=== PATIENT | male | born 1975 | race Caucasian/White ===

== ENCOUNTER 2019-03-20 07:07 | Emergency (ER) | payer BC, OTHER ==
[2019-03-20 08:24] LABS: Urine Blood NEGATIVE (NEG); Urine Glucose NEGATIVE (NEG); Urine Protein NEGATIVE (NEG); Urine Specific Gravity >1.030 (1.005-1.030); Urine pH 5.5 (5.0-7.0)
--- NOTE | 2019-03-20 08:43 | ER ---
Nurse's Notes [facility] Name: Fan Terry Age: 43 yrs Sex: Male : 1975 Arrival Date: 03/20/2019 Time: 07:10 Bed 15 Private MD: Chano Garcia E Diagnosis: Epididymitis Presentation: 03/20 07:16 Presenting complaint: Patient states: R sided testicular pain x 2 days, redness and ss swelling that began yesterday. Transition of care: patient was not received from another setting of care. Onset of symptoms was February 16, 2019. Risk Assessment: Do you want to hurt yourself or someone else? Patient reports no desire to harm self or others. Initial Sepsis Screen: Does the patient meet any 2 criteria? No. Patient's initial sepsis screen is negative. Does the patient have a suspected source of infection? No. Patient's initial sepsis screen is negative. Care prior to arrival: None. 07:16 Method Of Arrival: Ambulatory ss 07:16 Acuity: ALONSO 3 ss Historical: - Allergies: 07:17 No Known Allergies; ss - Home Meds: 07:17 testosterone [Active]; ss - PMHx: 07:17 None; ss - PSHx: 07:17 Vasectomy; ss - Immunization history:: Adult Immunizations up to date. - Social history:: Smoking status: Patient/guardian denies using tobacco. - Ebola Screening: : Patient denies exposure to infectious person Patient denies travel to an Ebola-affected area in the 21 days before illness onset. Screenin:20 Abuse screen: Denies threats or abuse. Denies injuries from another. Nutritional sg screening: No deficits noted. Tuberculosis screening: No symptoms or risk factors identified. Never had TB. Fall Risk None identified. Assessment: 07:20 General: Appears in no apparent distress. well groomed, well developed, well nourished, sg Behavior is calm, cooperative, appropriate for age. Pain: Complains of pain in right testicle Quality of pain is described as aching, tender. Neuro: Level of Consciousness is awake, alert, obeys commands, Oriented to person, place, time, situation, Speech is normal, Facial symmetry appears normal. Cardiovascular: Capillary refill is brisk fingers toes Patient's skin is warm and dry. Chest pain is denied. Respiratory: Airway is patent Respiratory effort is even, unlabored, Respiratory pattern is regular, symmetrical. GI: Abdomen is flat, non-distended, Reports normal bowel habits, tolerance of fluids, tolerance of food. : Genitalia appear normal Last void was March 20, 2019. Reports pain in right testicle. EENT: No signs and/or symptoms were reported regarding the EENT system. Derm: Skin is pink, warm \T\ dry. Musculoskeletal: Circulation, motion, and sensation intact. Range of motion: intact in all extremities. Vital Signs: 07:17 BP 144 / 97; Pulse 75; Resp 16; Pulse Ox 99% on R/A; Weight 90.72 kg; Height 5 ft. 7 ss in. (170.18 cm); Pain 3/10; 07:20 Temp 98.4(O); em1 08:35 BP 122 / 92; Pulse 73; Resp 16; Pulse Ox 99% on R/A; Pain 3/10; em1 07:17 Body Mass Index 31.32 (90.72 kg, 170.18 cm) ED Course: 07:10 Patient arrived in ED. rg4 07:10 Chano Garcia MD is Private Physician. rg4 07:13 Erika Bermudez FNP-C is [facility]. kb 07:13 Parish Weston MD is Attending Physician. kb 07:14 Ranulfo Rosario MD is Attending Physician. kb 07:16 Triage completed. ss 07:16 Eloy Richter, RN is Primary Nurse. sg 07:17 Arm band placed on right wrist. ss 07:20 Urine collected: clean catch specimen. sg 07:59 Ultrasound completed. Patient tolerated well. aa4 07:59 US Scrotum Testicles In Process Unspecified. EDMS Administered Medications: 08:50 Drug: Rocephin (cefTRIAXone) 250 mg Route: IM; Site: left vastus lateralis; sg 08:50 Drug: Doxycycline 100 mg Route: PO; sg Outcome: 08:42 Discharge ordered by . kb 09:04 Patient left the ED. sg Signatures: Dispatcher [employer] EDMS Erika Bermudez FNP-C FNP-Eloy Bui RN RN Cynthia Frost aa4 Shahram Ma em1 Angela Juarez RN RN Yazmin Gerber rg4
--- NOTE | 2019-03-20 08:43 | EDPHYS ---
Physician Documentation [facility] Name: Fan Terry Age: 43 yrs Sex: Male : 1975 Arrival Date: 03/20/2019 Time: 07:10 Bed 15 Private MD: Chano Garcia E ED Physician Ranulfo Rosario HPI: 03/20 07:25 This 43 yrs old Male presents to ER via Ambulatory with complaints of kb Testicular Pain, Testicular Swelling. 07:25 The patient presents with scrotal pain, of both sides. Onset: The symptoms/episode kb began/occurred 2 day(s) ago. Modifying factors: The symptoms are alleviated by nothing, the symptoms are aggravated by pressure. Associated signs and symptoms: The patient has no apparent associated signs or symptoms. Severity of symptoms: At their worst the symptoms were moderate, in the emergency department the symptoms are unchanged. The patient has not experienced similar symptoms in the past. The patient has not recently seen a physician. Pt reports right testicular swelling, redness and pain that started 2 days ago. Denies any other symptoms.. Historical: - Allergies: 07:17 No Known Allergies; ss - Home Meds: 07:17 testosterone [Active]; ss - PMHx: 07:17 None; ss - PSHx: 07:17 Vasectomy; ss - Immunization history:: Adult Immunizations up to date. - Social history:: Smoking status: Patient/guardian denies using tobacco. - Ebola Screening: : Patient denies exposure to infectious person Patient denies travel to an Ebola-affected area in the 21 days before illness onset. ROS: 07:24 Constitutional: Negative for fever, chills, and weight loss, Cardiovascular: Negative kb for chest pain, palpitations, and edema, Respiratory: Negative for shortness of breath, cough, wheezing, and pleuritic chest pain, Abdomen/GI: Negative for abdominal pain, nausea, vomiting, diarrhea, and constipation, Back: Negative for injury and pain, MS/Extremity: Negative for injury and deformity, Skin: Negative for injury, rash, and discoloration, Neuro: Negative for headache, weakness, numbness, tingling, and seizure. 07:24 : Positive for testicular pain of the right testicle. Exam: 07:24 Constitutional: This is a well developed, well nourished patient who is awake, alert, kb and in no acute distress. Head/Face: Normocephalic, atraumatic. Neck: Trachea midline, no thyromegaly or masses palpated, and no cervical lymphadenopathy. Supple, full range of motion without nuchal rigidity, or vertebral point tenderness. No Meningismus. Chest/axilla: Normal chest wall appearance and motion. Nontender with no deformity. No lesions are appreciated. Cardiovascular: Regular rate and rhythm with a normal S1 and S2. No gallops, murmurs, or rubs. Normal PMI, no JVD. No pulse deficits. Respiratory: Lungs have equal breath sounds bilaterally, clear to auscultation and percussion. No rales, rhonchi or wheezes noted. No increased work of breathing, no retractions or nasal flaring. Abdomen/GI: Soft, non-tender, with normal bowel sounds. No distension or tympany. No guarding or rebound. No evidence of tenderness throughout. Skin: Warm, dry with normal turgor. Normal color with no rashes, no lesions, and no evidence of cellulitis. MS/ Extremity: Pulses equal, no cyanosis. Neurovascular intact. Full, normal range of motion. Neuro: Awake and alert, GCS 15, oriented to person, place, time, and situation. Cranial nerves II-XII grossly intact. Motor strength 5/5 in all extremities. Sensory grossly intact. Cerebellar exam normal. Normal gait. 07:24 : Male external genitalia: tenderness, that is moderate, right testicle. Vital Signs: 07:17 BP 144 / 97; Pulse 75; Resp 16; Pulse Ox 99% on R/A; Weight 90.72 kg; Height 5 ft. 7 ss in. (170.18 cm); Pain 3/10; 07:20 Temp 98.4(O); em1 08:35 BP 122 / 92; Pulse 73; Resp 16; Pulse Ox 99% on R/A; Pain 3/10; em1 07:17 Body Mass Index 31.32 (90.72 kg, 170.18 cm) ss MDM: 07:13 Patient medically screened. kb 07:24 Data reviewed: vital signs, nurses notes. Data interpreted: Pulse oximetry: on room air kb is 99 %. Interpretation: normal. 07:26 ED course: +right testicular tenderness, no redness or swelling appreciated. . kb 08:42 Counseling: I had a detailed discussion with the patient and/or guardian regarding: the kb historical points, exam findings, and any diagnostic results supporting the discharge/admit diagnosis, lab results, radiology results, the need for outpatient follow up, a family practitioner, to return to the emergency department if symptoms worsen or persist or if there are any questions or concerns that arise at home. 03/20 07:26 Order name: Urine Dipstick--Ancillary (enter results); Complete Time: 08:26 bd 03/20 07:16 Order name: US Scrotum Testicles kb 03/20 07:16 Order name: Urine Dipstick-Ancillary (obtain specimen); Complete Time: 07:30 kb Administered Medications: 08:50 Drug: Rocephin (cefTRIAXone) 250 mg Route: IM; Site: left vastus lateralis; sg 08:50 Drug: Doxycycline 100 mg Route: PO; sg Disposition: 03/21 07:13 Co-signature as Attending Physician, Ranulfo Rosario MD I agree with the assessment and kdr plan of care. Disposition: 03/20/19 08:42 Discharged to Home. Impression: Epididymitis. - Condition is Stable. - Discharge Instructions: Epididymitis. - Prescriptions for Doxycycline Hyclate 100 mg Oral Tablet - take 1 tablet by ORAL route every 12 hours; 20 tablet. - Medication Reconciliation Form, Thank You Letter, Antibiotic Education, Prescription Opioid Use, Work release form form. - Follow up: Emergency Department; When: As needed; Reason: Worsening of condition. Follow up: Private Physician; When: 2 - 3 days; Reason: Recheck today's complaints, Continuance of care, Re-evaluation by your physician. Signatures: Dispatcher [employer] Erika Meyer, LABOR RELATIONS ANALYST-C LABOR RELATIONS ANALYST-CkEloy Richardson RN RN sg Ranulfo Rosario MD MD [facility] Angela Juarez RN RN ss Corrections: (The following items were deleted from the chart) 03/20 09:04 08:42 03/20/2019 08:42 Discharged to Home. Impression: Epididymitis. Condition is sg Stable. Forms are Medication Reconciliation Form, Thank You Letter, Antibiotic Education, Prescription Opioid Use. Follow up: Emergency Department; When: As needed; Reason: Worsening of condition. Follow up: Private Physician; When: 2 - 3 days; Reason: Recheck today's complaints, Continuance of care, Re-evaluation by your physician. kb
[2019-03-20] MEDS ORDERED: LIDOCAINE 1% MPF 2 ML AMPULE ONE (08:47)
[2019-03-20] MEDS ORDERED: DOXYCYCLINE 100 MG CAP PO ONE (08:48)
[2019-03-20] MEDS ORDERED: CEFTRIAXONE 250 MG/VIAL ONE (08:48)
[2019-03-20 09:09] VITALS: O2SAT 99
[2019-03-20 09:10] VITALS: TEMP 98.4
[2019-03-20 09:11] VITALS: BP 122/92
--- NOTE | 2019-03-20 10:23 | RAD REPORT ---
EXAM DESCRIPTION: US - Scrotum Testicles - 03/20/2019 7:59 am CLINICAL HISTORY: Right-sided testicular pain and swelling Preliminary findings provided at the time of the study. COMPARISON: July 2012 FINDINGS: Right epididymis is increased slightly in size compared to the left and shows a slight inc rease in vascularity. Both testicles show homogeneous echogenicity with no focal mass lesions. Dopple r evaluation shows a symmetric blood flow pattern within each testicle. No hydrocele or extratesticul ar abnormality otherwise noted. IMPRESSION: Mild right-sided epididymitis.
== END 2019-03-20 09:04 | disposition home or self-care (01) ==
LOC: ER 07:07
DX: N45.1 Epididymitis (principal)
CPT/HCPCS: 81003; 76870; 96372; 99283; J2001; J0696

== ENCOUNTER 2024-09-28 18:50 | Emergency (ER) | payer BC ==
[2024-09-28] MEDS ORDERED: IBUPROFEN 400 MG TAB ONE (20:22)
[2024-09-28] MEDS ORDERED: HYDROCODONE/APAP 7.5/325 MG TAB ONE (20:22)
--- NOTE | 2024-09-28 20:29 | RAD REPORT ---
EXAMINATION: Foot Right 3 View VIEWS: As above CLINICAL INDICATION: Male, 49 years old. Pain;Deformity COMPARISON: No prior exam. IMPRESSION: Nondisplaced fracture at the base of the fifth metatarsal. Dorsal aspect calcaneal spur.
--- NOTE | 2024-09-28 21:44 | EDPHYS ---
Physician Documentation [facility] Name: Fan Terry Age: 49 yrs Sex: Male : 1975 Arrival Date: 09/28/2024 Time: 18:50 Bed 12 Private MD: ED Physician Jos Don HPI: 09/28 19:30 This 49 yrs old Male presents to ER via Ambulatory with complaints of Foot Injury - cp right. 19:30 The patient presents with an injury, pain, that is acute, swelling, tenderness. The cp complaints affect the right foot. Context: trip and fall while working in yard today. Modifying factors: the symptoms are aggravated by weight bearing. Associated signs and symptoms: The patient has no apparent associated signs or symptoms. Treatment prior to arrival includes: no previous treatment. 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 - Infectious Disease History:: Denies. - Social history:: Smoking status: Patient denies any tobacco usage or history of. ROS: 19:33 MS/extremity: Positive for pain, swelling, tenderness, of the right foot, cp 19:33 Neck: Negative for pain with movement, pain at rest, cp 19:33 Back: Negative for pain at rest, pain with movement, 19:33 All other systems are negative, Exam: 19:35 Constitutional: The patient appears in no acute distress, alert, awake, well developed, cp well nourished, uncomfortable, 19:35 Head/Face: Normocephalic, atraumatic. cp 19:35 Neck: ROM/movement: is normal, is supple, without pain, no range of motions limitations, 19:35 Back: pain, is absent, ROM is normal, 19:35 Musculoskeletal/extremity: Extremities: noted in the right foot: lateral side swelling and marked tenderness of proximal right fifth metatarsal, Perfusion: the extremity is normally perfused throughout, the right foot Sensation intact. 19:35 Skin: small abrasion noted lateral side of right foot. Vital Signs: 19:11 BP 131 / 90; Pulse 93; Resp 16; Temp 97.6; Pulse Ox 98% on R/A; Weight 90.72 kg; Height iw 5 ft. 7 in. ; Pain 5/10; 19:11 Body Mass Index 31.32 (90.72 kg, 170.18 cm) iw 19:11 Pain Scale: Adult iw Procedures: 22:00 Splinting: Splint applied to right foot using Orthoglass splint, short leg type. cp applied by nurse. Examined by me, post splint application: neurovascular intact, Patient tolerated well. MDM: 19:08 Medical Screening Exam initiated cp 21:43 Data reviewed: vital signs, nurses notes, radiologic studies, plain films, and as a cp result, I will discharge patient. 21:43 Differential diagnosis: dislocation, open fracture, closed fracture, contusion, sprain. cp I considered the following discharge prescriptions or medication management in the emergency department Medications were administered in the Emergency Department. See MAR. Counseling: I had a detailed discussion with the patient and/or guardian regarding the historical points, exam findings, and any diagnostic results supporting the discharge/admit diagnosis, radiology results, the need for outpatient follow up, for definitive care, a orthopedic surgeon, to return to the emergency department if symptoms worsen or persist or if there are any questions or concerns that arise at home. Response to treatment: the patient's symptoms have mildly improved after treatment, and as a result, I will discharge patient. 09/28 19:20 Order name: XRAY Foot RIGHT 3 View cp 09/28 20:42 Order name: Short Leg Splint; Complete Time: 22:06 cp 09/28 20:42 Order name: Crutches; Complete Time: 22:06 cp Administered Medications: 20:34 Drug: Hydrocodone-Acetaminophen PO (7.5 mg-325 mg) 1 tabs PO once; RASS on ADMIN: iw Combtv4, Very Agttd3, Agttd2, Rstlss1, AlertClm0, Drwsy-1, Lt Sdtn-2, Mod Sdtn-3, Dp Sdtn-4, UnArsble-5 Route: PO; 21:55 Follow up: Response: No adverse reaction; Pain is decreased cp4 20:34 Drug: Ibuprofen PO 800 mg PO once Route: PO; iw 21:55 Follow up: Response: No adverse reaction; Pain is decreased cp4 Disposition: 09/29 21:08 Chart complete. cp Disposition Summary: 05/16/25 21:43 Discharge Ordered Notes: Location: Home cp Problem: new cp Symptoms: have improved cp Condition: Stable cp Diagnosis - Nondisplaced fracture of fifth metatarsal bone, right foot cp Followup: cp - With: Steve Rich MD - When: 2 - 3 days - Reason: Recheck today's complaints Discharge Instructions: - Discharge Summary Sheet cp - Metatarsal Fracture cp Forms: - Medication Reconciliation Form cp - Antibiotic Education cp - Prescription Opioid Use cp - Patient Portal Instructions cp - Leadership Thank You Letter cp Prescriptions: - Ibuprofen 800 mg Oral Tablet - take 1 tablet ORAL route every 8 hours As needed take with food; 30 tablet; cp Refills: 0, Product Selection Permitted - Tylenol-Codeine #3 300mg-30mg Oral tablet - take 1 tablet ORAL route every 4 hours As needed; 16 tablet; Refills: 0, cp Product Selection Permitted Addendum: 10/01/2024 17:41 I was immediately available on-site in the Emergency Department for consultation in the m s3 care of the patient. Signatures: Dispatcher [employer] Pricilla Sotelo RN RN iw Page, Corey, PA PA Jos Baxter DO DO ms3 Elise Dueñas cp4
--- NOTE | 2024-09-28 21:44 | ER ---
Nurse's Notes [facility] Name: Fan Terry Age: 49 yrs Sex: Male : 1975 Arrival Date: 09/28/2024 Time: 18:50 Bed 12 Private MD: Diagnosis: Nondisplaced fracture of fifth metatarsal bone, right foot Presentation: 09/28 19:11 Chief complaint: Patient states: fell, rolled over garden hose. rolled his right foot. iw Coronavirus screen: At this time, the client does not indicate any symptoms associated with coronavirus-19. Ebola Screen: No symptoms or risks identified at this time. Initial Sepsis Screen: Does the patient meet any 2 criteria? No. Patient's initial sepsis screen is negative. Does the patient have a suspected source of infection? No. Patient's initial sepsis screen is negative. Risk Assessment: Do you want to hurt yourself or someone else? Patient reports no desire to harm self or others. Onset of symptoms was September 28, 2024. 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 - Infectious Disease History:: Denies. - Social history:: Smoking status: Patient denies any tobacco usage or history of. Screenin:15 [facility] ED Fall Risk Assessment (Adult) History of falling in the last 3 months, iw including since admission Yes- single mechanical fall (1 pt) Confusion or Disorientation No (0 pts) Intoxicated or Sedated No (0 pts) Impaired Gait No (0 pts) Mobility Assist Device Used No (0 pt) Altered Elimination No (0 pt) Score/Fall Risk Level 0 - 2 = Low Risk Oriented to surroundings, Maintained a safe environment. Abuse screen: Denies threats or abuse. Nutritional screening: No deficits noted. Tuberculosis screening: No symptoms or risk factors identified. Assessment: 19:15 General: Appears in no apparent distress. Behavior is calm, cooperative. Pain: iw Complains of pain in dorsum of right foot Pain currently is 5 out of 10 on a pain scale. Pain began 1 hour ago. Is continuous. Neuro: Level of Consciousness is awake, alert, obeys commands, Oriented to person, place, time, situation, Moves all extremities. Respiratory: Respiratory effort is even, unlabored, Respiratory pattern is regular, symmetrical. Derm: Skin is intact, is healthy with good turgor. Musculoskeletal: Range of motion: limited in right ankle Swelling present in right foot. Vital Signs: 19:11 BP 131 / 90; Pulse 93; Resp 16; Temp 97.6; Pulse Ox 98% on R/A; Weight 90.72 kg; Height iw 5 ft. 7 in. ; Pain 5/10; 19:11 Body Mass Index 31.32 (90.72 kg, 170.18 cm) iw 19:11 Pain Scale: Adult iw ED Course: 18:53 Patient arrived in ED. im 18:57 Jeronimo Shah PA is PHCP. cp 18:57 Rafy Real MD is Attending Physician. cp 19:12 Triage completed. iw 19:13 Arm band placed on. iw 19:16 Patient has correct armband on for positive identification. Provided Education on: wait iw time . 20:07 Jos Don DO is Attending Physician. cp 20:10 XRAY Foot RIGHT 3 View In Process Unspecified. EDMS 21:43 Steve Rich MD is Referral Physician. cp 21:50 Elise Dueñas is Primary Nurse. cp4 22:06 No provider procedures requiring assistance completed. Patient did not have IV access cp4 during this emergency room visit. Crutch training done. Orthoglass splint: Posterior short lleg splint applied on right leg. Administered Medications: 20:34 Drug: Hydrocodone-Acetaminophen PO (7.5 mg-325 mg) 1 tabs PO once; RASS on ADMIN: iw Combtv4, Very Agttd3, Agttd2, Rstlss1, AlertClm0, Drwsy-1, Lt Sdtn-2, Mod Sdtn-3, Dp Sdtn-4, UnArsble-5 Route: PO; 21:55 Follow up: Response: No adverse reaction; Pain is decreased cp4 20:34 Drug: Ibuprofen PO 800 mg PO once Route: PO; iw 21:55 Follow up: Response: No adverse reaction; Pain is decreased cp4 Medication: 19:15 VIS not applicable for this client. iw Outcome: 21:43 Discharge ordered by . cp 22:17 Discharged to home with crutches, br2 22:17 Condition: good 22:17 Discharge instructions given to patient, Instructed on discharge instructions, follow up and referral plans. Demonstrated understanding of instructions, follow-up care, medications, Prescriptions given X 2, 22:17 Patient left the ED. br2 Signatures: Dispatcher [employer] Pricilla Sotelo RN RN iw Jeronimo Shah PA PA cp Mendoza, Itzel im Potter, Christina cp4 Tracey Cobb RN RN br2
[2024-09-28 22:49] VITALS: BP 131/90; TEMP 97.6; O2SAT 98
== END 2024-09-28 22:17 | disposition home or self-care (01) ==
LOC: ER 18:50
PROC: 2W3QX1Z Immobilization of Right Lower Leg using Splint (ICD-10-PCS; principal; 2024-09-28)
DX: S92.354A Nondisplaced fracture of fifth metatarsal bone, right foot, initial encounter for closed fracture (principal); W01.0XXA Fall on same level from slipping, tripping and stumbling without subsequent striking against object, initial encounter
CPT/HCPCS: 99283